=== PATIENT | male | born 1990 | race Caucasian/White ===

== ENCOUNTER 2020-11-21 17:13 | Emergency (ER) | payer SELFPAY ==
[2020-11-21 17:14] VITALS: BP 117/78; PULSE 73; RESP 18; TEMP 36.8; O2SAT 96; BMI 24.3
--- NOTE | 2020-11-21 17:31 | EDS_ITS ---
HPI History of Present Illness Chief Complaint: Eye Problem Informant: patient Onset/Context/Timing Location: Left Eye Onset: Yesterday Context: Sudden Onset Timing: Continuous Relieved by: Nothing Associated Symptoms Associated Symptoms - Eyes: Drainage (Watery), Foreign body sensation, Pain and Redness; Negative for Burning, Crusting, Eyelid swelling, Itching, Matting and Photophobia History of injury: Yes and Grinding injury Narrative Narrative: Patient presents with foreign body sensation to his left eye that began yesterday. Patient states he was grinding yesterday and thinks something got into his eye. Patient states he was not using safety glasses. Patient admits to some watery drainage. Patient denies any matting or crusting. Patient admits to some redness to the left eye. Patient also admits to pain in his left eye. Patient denies any visual changes. Patient does not normally wear glasses or contacts. PFSH PFSH Medical History no medical history no medical history Allergy/AdvReac Type Severity Reaction Status Date / Time No Known Allergies Allergy Verified 11/21/20 17:15 Surgical History no surgical history Social History Smoking Status: Never smoker ROS ROS ED Constitutional Constitutional ED: Denies chills or fever(s) Eyes Eyes: Denies blurry vision or change in vision ENT ENT ED: Denies rhinorrhea or sore throat Cardiovascular Cardiovascular: Denies chest pain or palpitations Respiratory/Chest Respiratory/Chest: Denies cough or dyspnea Gastrointestinal Gastrointestinal: Denies nausea or vomiting Genitourinary Genitourinary ED: Denies dysuria or hematuria Musculoskeletal Musculoskeletal: Denies back pain or neck pain Integumentary Denies abscess or rash Neurologic Neurologic: Denies headache(s) or weakness Allergic/Immunologic Allergic/Immunologic ED: Denies mouth swelling or urticaria EXAM Physical Exam Const Vital Signs: 11/21/20 17:14 Temperature 98.2 F Temperature Source Temporal Pulse Rate 73 Respiratory Rate 18 Blood Pressure 117/78 Blood Pressure Mean 91 Pulse Ox 96 Oxygen Delivery Method Room Air Positive well nourished and well developed General Appearance ED: well developed HEENT atraumatic Eyes General Eye ED: Yes normal appearance of both eyes and normal light reflex Alignment: alignment normal Periorbital: periorbital findings normal Eyelid: eyelids normal Conjunctiva: conjunctiva abnormal left Details: injection Positive for diffuse Sclera: sclera normal Cornea: cornea abnormal Positive for left Cornea - Left Eye: Positive for foreign body Details: Positive for metal, rust ring present and at clock position (8) Pupil: PERRL and accommodation reflex normal Slit Lamp: anterior chamber normal appearing and normal depth Neck supple and no JVD Neuro oriented x3, CN's II-XII intact bilaterally, moves all extremities and no sensory deficits noted Sensorium / Orientation: alert MDM MDM MDM Narrative Medical decision making narrative: Tetanus booster was ordered. Patient refused this. Visual acuity was 20/25 in the left eye, 20/15 in the right eye, and 2 0/15 in both eyes. Tetracaine was applied to the left eye. An ophthalmic bur was used to remove the foreign body. There is still a rust ring present. I attempted to remove as much rust ring as I possibly could. There is still some rust ring noted. Patient was unable to tolerate further attempts at rust ring removal. Patient was given ophthalmic antibiotics. Patient was referred to Dr. Doll from ophthalmology for follow-up care in 1 to 2 days. Patient understood and was agreeable with the plan. All questions were answered. Discharge Plan Triage Chief Complaint: Eye Problem ED Provider: Addy Thompson Dx/Rx/DC Orders Clinical Impression: Foreign body in cornea, left eye, initial encounter Instructions: ED Corneal Foreign Body, Removed, ED RUST RING Primary Care Provider: Care Physician,No Primary Referrals: Mahogany Doll MD [STAFF PHYSICIAN] - As soon as possible Care Physician,No Primary [Primary Care Provider] - Disposition Disposition: Home, Self Care
[2020-11-21] MEDS: Tetracaine 0.5% Ophthalmic Bottle OPHTHALMIC (17:51)
[2020-11-21] MEDS: Erythromycin Ophthalmic (NSY) 1 GM OPTH.TUBE 1 APPLIC LEFT EYE (18:54)
== END 2020-11-21 18:55 | disposition home or self-care (01) ==
PROVIDERS: Emergency Provider Emergency Medicine
DX: T15.02XA Foreign body in cornea, left eye, initial encounter (principal); X58.XXXA Exposure to other specified factors, initial encounter; Y93.89 Activity, other specified; Y92.9 Unspecified place or not applicable; Y99.9 Unspecified external cause status
CPT/HCPCS: 65220; 90715; 99283